=== PATIENT | male | born 1980 | race Caucasian/White ===

== ENCOUNTER 2023-05-06 08:32 | Outpatient (CLI) | payer BC, SELFPAY ==
--- NOTE | 2023-05-31 12:01 | WPDHOMESLEEP ---
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 He frequently wakes himself up snoring. He always feels tired in the day. This started several years ago. He completed a home sleep test, insurance denied additional testing and support such as CPAP. He frequently awakens from sleep feeling short of breath. He rarely wakes at night with heartburn, belching or coughing. He constantly snores, constantly snores loudly enough that others complain. He constantly has trouble sleeping when he has a cold. He frequently wakes up gasping for breath during the night. He frequently has breathing problems at night. He occasionally sweats excessively at night. He never notices his heart pounding or beating irregularly during the night. He occasionally falls asleep during the day. He never falls asleep involuntarily, never falls asleep while driving. He never experiences loss of muscle tone with strong emotion. He rarely has daytime difficulty at work due to excessive sleepiness. He never feels paralyzed on waking or falling asleep. He never experiences vivid dreams upon waking or falling asleep. He never feels afraid of going to sleep. He never has nightmares. He rarely recalls his dreams. He rarely has thoughts racing through his mind. He never feels sad or depressed. He rarely feels anxiety. He never notices parts of his body jerk. He occasionally kicks during the night. He occasionally feels crawling or aching feelings in his legs. He occasionally feels leg pain at night. He rarely has morning jaw pain, rarely grinds his teeth at night. He occasionally feels bothered by pain during the day, occasional awakened by pain during the night. He occasional wakes up feeling stiff in the morning, and he occasionally wakes feeling sore or achy. He occasionally awakens with pain in his neck, spine, or joints. he reports gaining 10 lb during the last 12 months. His collar size has increased half an inch in the last 12 months. Normal bedtime is 9:00 p.m., falling asleep within 10-15 minutes, waking several times at night. While awake he goes to the bathroom, gets back into bed and returns to sleep quickly. Wake time is 5:15 a.m.. He typically gets 6 hours of sleep per night. He takes no] naps in the day. Habits: Tobacco: never smoker Caffeine: 2 servings of coffee a day, 8 oz. Alcohol: on occasion, a couple of beers Recreational substances: none PMFSH Past Medical History Medical History Dyslipidemia Mild sleep apnea (~2014) Surgical History Surgical History [place] teeth extracted (~2010) Family History Family History Grandparent Cancer Mother Uterine cancer Other Diabetes mellitus Social History Social History Smoking status: Never smoker Second hand tobacco smoke exposure: No Alcohol intake: current Alcohol use details: consumes 2-3 beers socially Substance use: never Substance use type: does not use Lack of Transportation: No Lack of Food: Never True Current Housing: I Have Housing Concerned About Future Housing: No Difficulty Paying Gas/Electric Bills: No Difficulty Paying for Meds: No Currently Unemployed: No Education: Master's Degree or Higher D
[2023-05-31 12:16] VITALS: BMI 33.6
== END 2023-05-07 08:00 | disposition home or self-care (01) ==
PROVIDERS: PCP Family Medicine; Visit Provider Nurse Practitioner Family
DX: G47.33 Obstructive sleep apnea (adult) (pediatric) (principal); R40.0 Somnolence; Z68.33 Body mass index [BMI] 33.0-33.9, adult
CPT/HCPCS: 95800